=== PATIENT | female | born 1970 | race Caucasian/White ===

== ENCOUNTER → 2016-08-23 | Outpatient (CLI) | payer OTHER ==
--- NOTE | 2016-08-23 12:57 | KCIC ---
PROCEDURE Chest, two views. HISTORY Acute bronchitis. FINDINGS Frontal and lateral views of the chest are obtained. There is no infiltrate, effusion or pneumothorax. There is lingular atelectasis or scarring. The heart is normal in size. There is cervical spinal fusion instrumentation. IMPRESSION No acute pulmonary finding. Electronically signed by: Denisse Mcgee (Aug 23, 2016 12:55:28)
== END | disposition home or self-care (01) ==
LOC: KCIC 12:31
PROVIDERS: ATTEND Nurse Practitioner
DX: J20.8 Acute bronchitis due to other specified organisms (principal); R05 Cough; J98.11 Atelectasis; R07.9 Chest pain, unspecified; R06.02 Shortness of breath
CPT/HCPCS: 71020